=== PATIENT | male | born 1995 | race Caucasian/White ===

== ENCOUNTER 2024-06-04 21:25 | Emergency (ER) | payer SELFPAY ==
[~2024-06-04] VITALS: Ht 190.5 cm; Wt 113.0 kg
[2024-06-04 21:32] VITALS: O2SAT 99
[2024-06-04 21:42] VITALS: BP 153/93; PULSE 95; RESP 16; TEMP 98.4; O2SAT 99
[2024-06-04 23:49] LABS: BASOPHILS % 0.5 % (0.0-2.0); EOSINOPHILS % 1.9 % (0.0-5.0); HEMATOCRIT. 42.3 % (42.0-52.0); HEMOGLOBIN. 14.7 g/dL (14.0-18.0); LYMPHOCYTES % 22.1 % (20.0-50.0); MEAN CORPUSCULAR HEMOGLOBIN 31.3 pg (28.0-32.0); MEAN CORPUSCULAR HGB CONC 34.8 g/dL (31.0-37.0); MEAN CORPUSCULAR VOLUME 89.9 fL (80.0-94.0); MEAN PLATELET VOLUME 9.1 fl (7.4-10.4); MONOCYTES % 6.6 % (2.0-8.0); NEUTROPHILS % 68.9 % (40.0-76.0); PLATELET 205 x1000/uL (130-400); RED CELL DISTRIBUTION WIDTH 12.5 % (11.6-14.6); WHITE BLOOD COUNT 8.6 x1000/uL (4.5-11.0)
[2024-06-04 23:56] LABS: CHLORIDE 105 mEq/L (98-107); POTASSIUM 3.8 mEq/L (3.5-5.1); SODIUM 139 mEq/L (136-145)
[2024-06-04 23:57] LABS: CARBON DIOXIDE 26 mEq/L (21-32)
[2024-06-04 23:58] LABS: CALCIUM 9.6 mg/dL (8.7-10.4)
[2024-06-05 00:02] LABS: CREATININE 1.1 mg/dL (0.6-1.3); GLUCOSE 168 mg/dL (70-105); UREA NITROGEN BLOOD 13 mg/dL (9-23)
[2024-06-05 00:03] LABS: TROPONIN I HIGH SENSITIVITY 5 ng/L (3.0-53)
== END 2024-06-05 00:27 | disposition home or self-care (01) ==
LOC: ER 21:25
DX: R55 Syncope and collapse (principal); R42 Dizziness and giddiness
CPT/HCPCS: 36415; 71045; 80048; 84484; 85025; 93005; 99285